=== PATIENT | male | born 1950 | race Caucasian/White ===

== ENCOUNTER 2017-12-30 10:00 | Emergency (ER) | payer OTHER ==
--- NOTE | 2017-12-30 10:15 | EDPHY ---
H & P Stated Complaint: l shoulder/neck pain saw chiropractor thursday Time Seen by Provider: 12/30/17 10:14 HPI/ROS: HPI: This is a 67-year-old male who presents with Chief Complaint: Left shoulder, neck pain. Saw a chiropractor on Thursday Location: Left shoulder, neck Quality: Pain Duration: Signs and Symptoms: No bleeding, no radiation, no numbness, no weakness, no tingling, no incontinence, no decreased range of motion, no swelling, no pain, no fever Timing: Severity: Context: Patient presents with complaints of left lateral neck discomfort that started approximately 5 days ago. He reports that he woke up the other morning and noted the superior portion of his shoulder was aching in nature. He performed some stretching exercises and then went for his daily run per usual. He thought that he was getting better. The next day he woke up again feeling more sore in the superior shoulder left lateral neck area. This time symptoms did not improve with stretching exercises. He went to see the chiropractor on Thursday who performed manipulation. He reports that he had no relief from the chiropractic services. In fact, he woke up the next morning with intense, moderate left lateral neck discomfort that radiated into his left shoulder area. He denies any decreased range of motion, weakness in his shoulder area. He is right-hand dominant. Yesterday evening and now this morning he is having shooting pains from his left lateral neck into his left bicep muscle. He denies any paresthesias/numbness in his fingers. He reports that he does not have any dizziness, headache, jaw pain, ear pain. Patient is extremely claustrophobic and unable to participate in an MRI. He has had a CT scan in the past but received procedural sedation prior to imaging study being performed. Modifying Factors: See above Comment: ROS: see HPI Constitutional: No fever, no chills, no weight loss Eyes: No blurred vision Respiratory: No shortness of breath, no cough Cardiovascular: No chest pain Gastrointestinal: No nausea, no vomiting no diarrhea Genitourinary: No dysuria Extremities: No myalgias Neurologic: No weakness, no numbness Skin: No rashes Hematologic: No bruising, no bleeding MEDICAL/SURGICAL/SOCIAL HISTORY: Medical history: Hypertension, depression, BPH Surgical history:mitral valve surgery, right hip replacement Social history: Employed. . CONSTITUTIONAL: Extremely polite and cooperative adult white male, physically fit, awake and alert, no obvious distress HEENT: Atraumatic and normocephalic. NECK: supple, no midline tenderness, flexion 45 degrees, extension 45 degrees, right and left lateral flexion 45 degrees. No meningismus. No carotid bruits. Cardiovascular: Normal S1/S2, regular rate, regular rhythm, without murmur rub or gallop. PULMONARY/CHEST: Symmetrical and nontender. Clear to auscultation bilaterally. Good air movement. No accessory muscle usage. ABDOMEN: Soft, nondistended, nontender. EXTREMITIES: 2/2 pulses, strength 5/5, left SHOULDER: Arc test abduction to 180, abduction to 45, horizontal flexion 130, horizontal extension to 45, deltoid strength 5/5. No pain with Neer test/Raya test (impingement). No Tenderness to palpation over AC joint. no deformities, no clubbing, no cyanosis or edema. NEUROLOGICAL: no focal neuro deficits. GCS 15. Light touch sensation intact. SKIN: Warm and dry, no erythema. no rash. Good capillary refill. Source: Patient, Family () Exam Limitations: No limitations - Personal History Current Tetanus/Diphtheria Vaccine: Yes - Medical/Surgical History Hx Asthma: No Hx Chronic Respiratory Disease: No Hx Diabetes: No Hx Cardiac Disease: Yes Hx Renal Disease: No Hx Cirrhosis: No Hx Alcoholism: No Hx HIV/AIDS: No Hx Splenectomy or Spleen Trauma: No Other PMH: mitral valve surg/r hip replacement/htn - Social History Smoking Status: Never smoked Constitutional: Initial Vital Signs Temperature (C) 37 C 12/30/17 10:05 Heart Rate 67 12/30/17 10:05 Respiratory Rate 18 12/30/17 10:05 Blood Pressure 138/69 H 12/30/17 10:05 O2 Sat (%) 95 12/30/17 10:05 O2 Delivery Mode Room Air Allergies/Adverse Reactions: No Known Allergies Allergy (Unverified 12/30/17 10:02) Home Medications: Medication Instructions Recorded Adderall 10 MG (*) 12/30/17 Androgel 12/30/17 Aspirin 81mg (*) 12/30/17 Crestor 12/30/17 Diazepam [Valium 5 MG (*)] 5 mg PO Q8 PRN #12 tab 12/30/17 Flomax 12/30/17 Hydrochlorothiazide 12/30/17 LaMICtal 12/30/17 Lexapro 12/30/17 Losartan Potassium 12/30/17 methylPREDNISolone [Medrol Dose 1 each PO AD #0 ea 12/30/17 Jairo] oxyCODONE/APAP 5/325 [Percocet 1 - 2 tab PO Q4H PRN #10 tab 12/30/17 5/325 (*)] Medical Decision Making ED Course/Re-evaluation: Patient has no neurological deficits. His vital signs are stable. Long discussion with the patient and his regarding risks and benefits of imaging at this time. I highly doubt that the patient has an aortic dissection. He is not hypertensive and does not have tearing/ripping pain or chest pain. There are no pulse deficits. Cervical x-rays would only show degenerative changes and would not be beneficial. Patient requests to treat his symptoms and then if needed, follow up with Neurosurgery. I feel this to be reasonable as there are no signs of neurovascular compromise and no indication for an emergent MRI or CTA neck. Patient was given a prescription for Medrol Dosepak, Valium and Percocet. This patient was seen under the supervision of my secondary supervising physician. I evaluated care for this patient independently. Discussed this patient with Dr. Masterson who did not see the patient. Differential Diagnosis: Neck pain differential diagnosis includes but is not limited to aortic dissection, rotator cuff injury, shoulder bursitis, cervical radiculopathy, cervical degenerative disc disease, cervical disc herniation, cervical paraspinous muscle spasm. Departure - Departure Disposition: Home, Routine, Self-Care Clinical Impression: Cervical radiculopathy, Spasm of cervical paraspinous muscle Condition: Good Instructions: Spasmodic Torticollis (ED), Cervical Radiculopathy (ED), Neck Pain (ED) Additional Instructions: 1) Take Tylenol 650 mg every 4 hours and/or Ibuprofen 600 mg every 8 hours with food as needed for pain. 2) Use Valium every 8 hours as needed for muscle spasms. 3) Take Medrol Dosepak as directed. 4) Continue to perform gentle neck exercise stretches. 5) Follow up with Neurosurgery if symptoms persist after steroid taper and muscle relaxers. They will evaluate and recommend with you if conservative management versus imaging is indicated. 6) Return to the ER immediately if you experience new or worsening pain, discoloration, numbness, tingling, chest pain or any other symptoms that concern you. Referrals: ARIELLE IGLESIAS [Other] - As per Instructions Shakir Young MD [Medical Doctor] - As per Instructions Prescriptions: Diazepam [Valium 5 MG (*)] 5 mg PO Q8 PRN #12 tab PRN Reason: Spasms methylPREDNISolone [Medrol Dose Jiaro] 1 each PO AD #0 ea oxyCODONE/APAP 5/325 [Percocet 5/325 (*)] 1 - 2 tab PO Q4H PRN #10 tab PRN Reason: Pain, Severe
[2017-12-30 11:01] VITALS: BP 130/78
== END 2017-12-30 11:01 | disposition home or self-care (01) ==
DX: M54.12 Radiculopathy, cervical region (principal); M62.838 Other muscle spasm; I10 Essential (primary) hypertension; Z79.82 Long term (current) use of aspirin